=== PATIENT | female | born 1945 | race Caucasian/White ===

== ENCOUNTER → 2023-12-11 09:21 | Outpatient (REF) | payer MEDICARE, OTHER, SELFPAY | LOC: RAD 09:21 | PROVIDERS: ATTENDING PHYSICIAN Internal Medicine Geriatric Medicine | DX: Z00.00 Encounter for general adult medical examination without abnormal findings (principal); I10 Essential (primary) hypertension; E78.2 Mixed hyperlipidemia; R73.03 Prediabetes; R07.89 Other chest pain; K21.9 Gastro-esophageal reflux disease without esophagitis; I49.3 Ventricular premature depolarization; Z82.49 Family history of ischemic heart disease and other diseases of the circulatory system; D24.9 Benign neoplasm of unspecified breast; K86.2 Cyst of pancreas; Z13.89 Encounter for screening for other disorder; Z23 Encounter for immunization | CPT/HCPCS: 72110; 72202 ==

== ENCOUNTER → 2024-06-10 11:38 | Outpatient (REF) | payer MEDICARE, OTHER, SELFPAY | LOC: RAD 11:38 | PROVIDERS: ATTENDING PHYSICIAN Nurse Practitioner Family | DX: M79.672 Pain in left foot (principal) | CPT/HCPCS: 73630 ==

== ENCOUNTER → 2024-08-23 13:11 | Outpatient (REF) | payer MEDICARE, OTHER, SELFPAY | LOC: WDC 13:11 | PROVIDERS: ATTENDING PHYSICIAN Internal Medicine Geriatric Medicine | DX: Z12.31 Encounter for screening mammogram for malignant neoplasm of breast (principal) | CPT/HCPCS: 77063; 77067 ==

== ENCOUNTER → 2025-03-06 10:18 | Outpatient (REF) | payer MEDICARE, OTHER, SELFPAY | LOC: HWRAD 10:18 | PROVIDERS: ATTENDING PHYSICIAN Internal Medicine Geriatric Medicine | DX: M19.91 Primary osteoarthritis, unspecified site (principal); Z13.820 Encounter for screening for osteoporosis; M81.0 Age-related osteoporosis without current pathological fracture | CPT/HCPCS: 77080 ==